=== PATIENT | male | born 1990 | race Caucasian/White ===

== ENCOUNTER 2022-11-15 08:38 | Emergency (ER) | payer OTHER ==
[2022-11-15 08:47] VITALS: BMI 29.2
[2022-11-15] MEDS ORDERED: KETOROLAC TROMETHAMINE 30 MG/1 ML VIAL IM ONE (09:55)
[2022-11-15] MEDS ORDERED: ACETAMINOPHEN 500 MG TABLET (FP) PO ONE (09:55)
[2022-11-15] MEDS ORDERED: LIDOCAINE 5% TOPICAL PATCH TP ONE (09:56)
[2022-11-15] MEDS ORDERED: LIDOCAINE 5% TOPICAL PATCH ONE (10:03)
[2022-11-15] MEDS ORDERED: ACETAMINOPHEN 325 MG TABLET (FP) ONE (10:04)
[2022-11-15] MEDS ORDERED: KETOROLAC TROMETHAMINE 30 MG/1 ML VIAL ONE (10:04)
[2022-11-15 12:21] VITALS: BP 105/71; PULSE 68; RESP 16; TEMP 98.2
[2022-11-15] MEDS ORDERED: LIDOCAINE PATCH REMOVAL MC ONE (22:00)
== END 2022-11-15 12:22 | disposition home or self-care (01) ==
LOC: JERFT 08:38
PROC: 3E0233Z Introduction of Anti-inflammatory into Muscle, Percutaneous Approach (ICD-10-PCS; principal; 2022-11-15)
DX: M54.6 Pain in thoracic spine (principal); M25.511 Pain in right shoulder
CPT/HCPCS: 99284-25